=== PATIENT | male | born 2000 | race Caucasian/White ===

== ENCOUNTER 2019-09-03 09:46 | Inpatient (IN) | payer SELFPAY ==
[2019-09-03] VITALS (11 sets, daily range): BP systolic 115–149; BP diastolic 51–84
[~2019-09-03] VITALS: Ht 167.6 cm; Wt 63.8 kg
[2019-09-03] MEDS ORDERED: IV NORMAL SALINE 1000ML BAG 1,000 ML IV ONE ×2 (10:45→12:15)
[2019-09-03 11:17] LABS: BILIRUBIN,URINE NEGATIVE (NEG); CLARITY,URINE CLEAR; COLOR,URINE YELLOW; NITRITE,URINE NEGATIVE (NEG); PH,URINE 5.5; PROTEIN,URINE NEGATIVE (NEG-TRACE); UROBILINOGEN,URINE 0.2 mg/dL (0.2 mg/dL)
[2019-09-03 11:22] LABS: AMPHETAMINE/METHAMPHETAMINE POS (NEG); BARBITURATES NEG (NEG); BENZODIAZEPINES NEG (NEG); CANNABINOIDS POS (NEG); COCAINE NEG (NEG); METHADONE NEG (NEG); OPIATES NEG (NEG); PHENCYCLIDINE NEG (NEG)
[2019-09-03 11:44] LABS: HYALINE CASTS, URINE OCCASIONAL /HPF; SQUAMOUS EPITHELIAL CELL,UR OCC /LPF
[2019-09-03 11:46] LABS: BACTERIA,URINE FEW /HPF (0-FEW); RBC,URINE 0 /HPF (0-2)
[2019-09-03 11:51] LABS: BASO % 0 % (0-3); EOS % 0 % (0-3); HEMATOCRIT 45.7 % (39.0-53.0); HEMOGLOBIN 15.6 g/dL (13.0-17.5); LYMPH # 1.2 x10^3/uL (1.0-4.8); LYMPH % 11 % (24-48); MEAN CORPUSCULAR HEMOGLOBIN 30 pg (25-35); MEAN CORPUSCULAR HGB CONC 34 g/dL (31-37); MEAN CORPUSCULAR VOLUME 89 fL (79-100); MONO # 0.7 x10^3/uL (0.0-1.1); MONO % 6 % (0-9); NEUT # 9.1 x10^3/uL (1.8-7.7); NEUT % 82 % (31-73); PLATELET COUNT 153 x10^3/uL (140-400); RED BLOOD COUNT 5.16 x10^6/uL (4.30-5.70); RED CELL DISTRIBUTION WIDTH 13.1 % (11.5-14.5); WHITE BLOOD COUNT 11.1 x10^3/uL (4.0-11.0)
[2019-09-03 11:57] LABS: CALCIUM 9.2 mg/dL (8.5-10.1); CREATININE 1.3 mg/dL (0.7-1.3); GFR 70.4; POTASSIUM 3.1 mmol/L (3.5-5.1)
[2019-09-03 12:00] LABS: ACETAMIN < 2 mcg/ml (10-30); ETHANOL < 10 mg/dL (0-10); SALIC < 2.8 mg/dL (2.8-20.0)
[2019-09-03 12:05] LABS: ALBUMIN 4.9 g/dL (3.4-5.0); ALBUMIN/GLOBULIN RATIO 1.6 (1.0-1.7); TOTAL BILIRUBIN 0.3 mg/dL (0.2-1.0)
--- NOTE | 2019-09-03 12:28 | EKG ---
[facility] [address] [place] [address] Test Date: 2019-09-03 Test Time: 10:11:35 Pat Name: ZEN SCHMITT Department: Room: Gender: M Chief Scientist: : 2000 Requested By: KYRA NUNO Order Number: [id number] Reading MD: Measurements Intervals [place] Rate: 130 P: -109 [place]: 102 QRS: 77 QRSD: 90 T: 56 QT: 304 QTc: 454 Interpretive Statements SUPRAVENTRICULAR RHYTHM LEFT ATRIAL ABNORMALITY QRS(T) CONTOUR ABNORMALITY CONSIDER ANTEROLATERAL MYOCARDIAL DAMAGE ABNORMAL ECG RI6.01 No previous ECG available for comparison
--- NOTE | 2019-09-03 12:58 | PHYS DOC ---
Past Medical History Past Medical History: No Pertinent History Past Surgical History: No Surgical History Smoking Status: Current Every Day Smoker Alcohol Use: Occasionally Adult General Chief Complaint Chief Complaint: DRUG ABUSE HPI HPI Patient is a 18 year old accompanied by his significant other and his mother prieto ott presents to the emergency department with complaints of an altered mental status. Girlfriend states that she last saw the patient normal at 2:30 this morning. She states at 0730 this morning patient woke her up and was not behaving normally. He was talking about things that were not there and seemed to be having hallucinations. Per the girlfriend patient has a history of past methamphetamine abuse. Patient is alert and oriented to person, year, day, and place however his mumbling incoherent words between questions and complains that his feet smell. 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 Limited history of present illness due to patient's current ment al status and flight of ideas. Review of Systems Review of Systems All other ROS is negative unless otherwise noted in HPI. Current Medications Current Medications Current Medications Medications (Trade) Dose Ordered Sig/Ese Start Time Stop Time Status Last Admin Dose Admin Lorazepam (Ativan Inj) 1 mg 1X ONCE 09/03/19 12:15 09/03/19 12:16 DC 09/03/19 12:10 1 MG Sodium Chloride 1,000 ml @ 1,000 mls/hr 1X ONCE 09/03/19 12:15 09/03/19 13:14 DC 09/03/19 12:11 1,000 MLS/HR Allergies Allergies Allergies Coded Allergies Type Severity Reaction Last Updated Verified No Known Drug Allergies 09/03/19 No Physical Exam Physical Exam See Above Constitutional: Well developed, well nourished, appears intoxicated HENT: Normocephalic, atraumatic, bilateral external ears normal, oropharynx dry, no oral exudates, nose normal. [] Eyes: PERRLA, conjunctiva injected bilaterally, no discharge; pupils dilated and sluggish [] Neck: supple, no stridor. [] Cardiovascular:Heart rate regular tachycardic rhythm, no murmur [] Lungs & Thorax: Bilateral breath sounds clear to auscultation, respirations rapid and shallow, no retractions, no wheezing [] Abdomen: soft, no tenderness Skin: Warm, dry, no erythema, no rash. [] Extremities: No cyanosis, no clubbing, ROM intact, no edema. [] Neurologic: Alert and oriented X 3, strength 5/5 x4 extremities Psychologic: Affect paranoid, judgement impaired, mood volatile Current Patient Data Vital Signs Vital Signs Date Time Temp Pulse Resp B/P (MAP) Pulse Ox O2 Delivery O2 Flow Rate FiO2 09/03/19 12:36 134 18 149/101 (117) 95 Room Air 09/03/19 09:57 98.1 98.1 Lab Values Laboratory Tests Test 09/03/19 09:58 09/03/19 11:30 Urine Collection Type Unknown Urine Color Yellow Urine Clarity Clear Urine pH 5.5 Urine Specific [place] 1.015 Urine Protein Negative mg/dL (NEG-TRACE) Urine Glucose (UA) Negative mg/dL (NEG) Urine Ketones (Stick) Negative mg/dL (NEG) Urine Blood Negative (NEG) Urine Nitrite Negative (NEG) Urine Bilirubin Negative (NEG) Urine Urobilinogen Dipstick 0.2 mg/dL (0.2 mg/dL) Urine Leukocyte Esterase Negative (NEG) Urine RBC 0 /HPF (0-2) Urine WBC 1-4 /HPF (0-4) Urine Squamous Epithelial Cells Occ /LPF Urine Bacteria Few /HPF (0-FEW) Urine Hyaline Casts Occasional /HPF Urine Mucus Slight /LPF Urine Opiates Screen Neg (NEG) Urine Methadone Screen Neg (NEG) Urine Barbiturates Neg (NEG) Urine Phencyclidine Screen Neg (NEG) Urine Amphetamine/Methamphetamine Pos (NEG) Urine Benzodiazepines Screen Neg (NEG) Urine Cocaine Screen Neg (NEG) Urine Cannabinoids Screen Pos (NEG) Urine Ethyl Alcohol Neg (NEG) White Blood Count 11.1 x10^3/uL (4.0-11.0) H Red Blood Count 5.16 x10^6/uL (4.30-5.70) Hemoglobin 15.6 g/dL (13.0-17.5) Hematocrit 45.7 % (39.0-53.0) Mean Corpuscular Volume 89 fL (79-100) Mean Corpuscular Hemoglobin 30 pg (25-35) Mean Corpuscular Hemoglobin Concent 34 g/dL (31-37) Red Cell Distribution Width 13.1 % (11.5-14.5) Platelet Count 153 x10^3/uL (140-400) Neutrophils (%) (Auto) 82 % (31-73) H Lymphocytes (%) (Auto) 11 % (24-48) L Monocytes (%) (Auto) 6 % (0-9) Eosinophils (%) (Auto) 0 % (0-3) Basophils (%) (Auto) 0 % (0-3) Neutrophils # (Auto) 9.1 x10^3/uL (1.8-7.7) H Lymphocytes # (Auto) 1.2 x10^3/uL (1.0-4.8) Monocytes # (Auto) 0.7 x10^3/uL (0.0-1.1) Eosinophils # (Auto) 0.0 x10^3/uL (0.0-0.7) Basophils # (Auto) 0.0 x10^3/uL (0.0-0.2) Sodium Level 141 mmol/L (136-145) Potassium Level 3.1 mmol/L (3.5-5.1) L Chloride Level 101 mmol/L (98-107) Carbon Dioxide Level 23 mmol/L (21-32) Anion Gap 17 (6-14) H Blood Urea Nitrogen 7 mg/dL (8-26) L Creatinine 1.3 mg/dL (0.7-1.3) Estimated GFR (Cockcroft-Gault) 70.4 BUN/Creatinine Ratio 5 (6-20) L Glucose Level 129 mg/dL (70-99) H Calcium Level 9.2 mg/dL (8.5-10.1) Total Bilirubin 0.3 mg/dL (0.2-1.0) Aspartate Amino Transferase (AST) 22 U/L (15-37) Alanine Aminotransferase (ALT) 40 U/L (16-63) Alkaline Phosphatase 109 U/L (46-116) Creatine Kinase 245 U/L (39-308) Creatine Kinase MB (Mass) 1.5 ng/mL (0.0-3.6) Creatine Kinase MB Relative Index 0.6 % (0-4) Troponin I Quantitative < 0.017 ng/mL (0.000-0.055) Total Protein 8.0 g/dL (6.4-8.2) Albumin 4.9 g/dL (3.4-5.0) Albumin/Globulin Ratio 1.6 (1.0-1.7) Salicylates Level < 2.8 mg/dL (2.8-20.0) L Salicylate Last Dose Date Unknown Salicylate Last Dose Time Unknown Acetaminophen Level < 2 mcg/ml (10-30) L Acetaminophen Last Dose Date Unknown Acetaminophen Last Dose Time Unknown Ethyl Alcohol Level < 10 mg/dL (0-10) Laboratory Tests 09/03/19 11:30 Laboratory Tests 09/03/19 11:30 EKG EKG 1011 sinus tach, no STEMI, rate [address] Hardy[] Radiology/Procedures Radiology/Procedures [] Course & Med Decision Making Course & Med Decision Making Pertinent Labs and Imaging studies reviewed. (See chart for details) 1249- Spoke with Dr. Ntetles and will admit patient for drug abuse, hallucinations, overdose to the ICU Poison control was contacted by Dorinda LEES, per poison control their recommendation includes IV fluids, benzodiazipines, and close monitoring will notify Dr. Nettles. [] Dragon Disclaimer Dragon Disclaimer This electronic medical record was generated, in whole or in part, using a voice recognition dictation system. Departure Departure Impression: Primary Impression: Amphetamine overdose of undetermined intent Additional Impressions: Hallucinations Drug abuse Disposition: ADMITTED INPATIENT Admitting Physician: KARIN (RICK) Condition: STABLE Referrals: NO PCP (PCP) Problem Qualifiers Primary Impression: Amphetamine overdose of undetermined intent Encounter type: initial encounter Qualified Codes: T43.624A - Poisoning by amphetamines, undetermined, initial encounter KYRA NUNO APRN Sep 03, 2019 12:58
[2019-09-03] MEDS ORDERED: ACETAMINOPHEN 325 MG TABLET. PO PRN (13:15)
[2019-09-03] MEDS ORDERED: MAG HYDROX/ALUMINUM HYD/SIMETH 30 ML ORAL.SUSP PO PRN (13:15)
[2019-09-03] MEDS ORDERED: ONDANSETRON PF 4 MG/2 ML VIAL. IV PRN (13:15)
[2019-09-03] MEDS ORDERED: POTASSIUM CHLORIDE 20 MEQ TABLET.ER. PO ONE (13:15)
[2019-09-03] MEDS ORDERED: 0.9 % SODIUM CHLORIDE 10 ML DISP.SYRIN. IV PRN (13:15)
[2019-09-03] MEDS ORDERED: MAGNESIUM HYDROXIDE 2,400 MG/30 ML ORAL.SUSP. PO PRN (13:15)
--- NOTE | 2019-09-03 13:39 | PDOC1 ---
History and Physical Date of Admission Date of Admission DATE: 09/03/19 TIME: 13:16 Identification/Chief Complaint Chief Complaint drug overdose Problems: (1) Drug abuse (2) Hallucinations (3) Amphetamine overdose of undetermined intent Source Source: Caregiver, Chart review, Patient History of Present Illness History of Present Illness 18 year old male with no significant pmx who presents to the ER with hallucinations and altered mental status. patient was last seen normal at 2:30 AM last night. apparently he took his sisters vyvanse, unclear amount. nio suicidal attempt per patient and family. hx of meth use per family. patient's mom and gf brought patient to ED given hallucinations and agitation. in the ED patient labs stable. patient tachycardic with HR in 120s. UDS positive for cannabinoids and amphetamines. history difficult to obtain as patient climbing out of bed and not speaking coherently. 4 mg of ativan total given by ED. I have instructed the ER to contact poison control to provide further recommendations regarding vyvanse OD. recommendations: IVF, benzos, and close monitoring Past Medical History Cardiovascular: No pertinent hx Past Surgical History Past Surgical History: No pertinent history Family History Family History reviewed and denies Social History Smoke: <1 pack per day ALCOHOL: occassional Drugs: Marijuana, Other (hx of meth) Current Problem List Problem List Problems Medical Problems: (1) Amphetamine overdose of undetermined intent Status: Acute (2) Drug abuse Status: Acute (3) Hallucinations Status: Acute Current Medications Current Medications Current Medications Sodium Chloride 1,000 ml @ 1,000 mls/hr 1X ONCE IV Last administered on 09/03/19at 11:29; Start 09/03/19 at 10:45; Stop 09/03/19 at 11:44; Status DC Lorazepam (Ativan Inj) 1 mg 1X ONCE IV Last administered on 09/03/19at 11:29; Start 09/03/19 at 10:45; Stop 09/03/19 at 11:22; Status DC Lorazepam (Ativan Inj) 1 mg 1X ONCE IV Last administered on 09/03/19at 12:10; Start 09/03/19 at 12:15; Stop 09/03/19 at 12:16; Status DC Sodium Chloride 1,000 ml @ 1,000 mls/hr 1X ONCE IV Last administered on 09/03/19at 12:11; Start 09/03/19 at 12:15; Stop 09/03/19 at 13:14 Lorazepam (Ativan Inj) 2 mg 1X ONCE IVP ; Start 09/03/19 at 13:00; Stop 09/03/19 at 13:01; Status DC Allergies Allergies: Coded Allergies: No Known Drug Allergies (Unverified , 09/03/19) ROS Review of System difficult to obtain given altered mental status Physical Exam Physical Exam GENERAL: agitated climbing out of bed HEENT: Head normocephalic, atraumatic. NECK: Supple LUNGS: Clear to auscultation. HEART: tachy ABDOMEN: Soft, positive bowel sounds. EXTREMITIES: No cyanosis or edema. NEUROLOGIC: unable to assess PSYCHIATRIC: flight of ideas, aggitated, no SI. SKIN: No ulceration. Vitals Vitals Vital Signs Date Time Temp Pulse Resp B/P (MAP) Pulse Ox O2 Delivery O2 Flow Rate FiO2 09/03/19 11:52 124 18 152/77 (102) 95 Room Air 09/03/19 09:57 98.1 98.1 Labs Labs Laboratory Tests Test 09/03/19 09:58 09/03/19 11:30 Urine Collection Type Unknown Urine Color Yellow Urine Clarity Clear Urine pH 5.5 Urine Specific [place] 1.015 Urine Protein Negative mg/dL (NEG-TRACE) Urine Glucose (UA) Negative mg/dL (NEG) Urine Ketones (Stick) Negative mg/dL (NEG) Urine Blood Negative (NEG) Urine Nitrite Negative (NEG) Urine Bilirubin Negative (NEG) Urine Urobilinogen Dipstick 0.2 mg/dL (0.2 mg/dL) Urine Leukocyte Esterase Negative (NEG) Urine RBC 0 /HPF (0-2) Urine WBC 1-4 /HPF (0-4) Urine Squamous Epithelial Cells Occ /LPF Urine Bacteria Few /HPF (0-FEW) Urine Hyaline Casts Occasional /HPF Urine Mucus Slight /LPF Urine Opiates Screen Neg (NEG) Urine Methadone Screen Neg (NEG) Urine Barbiturates Neg (NEG) Urine Phencyclidine Screen Neg (NEG) Urine Amphetamine/Methamphetamine Pos (NEG) Urine Benzodiazepines Screen Neg (NEG) Urine Cocaine Screen Neg (NEG) Urine Cannabinoids Screen Pos (NEG) Urine Ethyl Alcohol Neg (NEG) White Blood Count 11.1 x10^3/uL (4.0-11.0) Red Blood Count 5.16 x10^6/uL (4.30-5.70) Hemoglobin 15.6 g/dL (13.0-17.5) Hematocrit 45.7 % (39.0-53.0) Mean Corpuscular Volume 89 fL (79-100) Mean Corpuscular Hemoglobin 30 pg (25-35) Mean Corpuscular Hemoglobin Concent 34 g/dL (31-37) Red Cell Distribution Width 13.1 % (11.5-14.5) Platelet Count 153 x10^3/uL (140-400) Neutrophils (%) (Auto) 82 % (31-73) Lymphocytes (%) (Auto) 11 % (24-48) Monocytes (%) (Auto) 6 % (0-9) Eosinophils (%) (Auto) 0 % (0-3) Basophils (%) (Auto) 0 % (0-3) Neutrophils # (Auto) 9.1 x10^3/uL (1.8-7.7) Lymphocytes # (Auto) 1.2 x10^3/uL (1.0-4.8) Monocytes # (Auto) 0.7 x10^3/uL (0.0-1.1) Eosinophils # (Auto) 0.0 x10^3/uL (0.0-0.7) Basophils # (Auto) 0.0 x10^3/uL (0.0-0.2) Sodium Level 141 mmol/L (136-145) Potassium Level 3.1 mmol/L (3.5-5.1) Chloride Level 101 mmol/L (98-107) Carbon Dioxide Level 23 mmol/L (21-32) Anion Gap 17 (6-14) Blood Urea Nitrogen 7 mg/dL (8-26) Creatinine 1.3 mg/dL (0.7-1.3) Estimated GFR (Cockcroft-Gault) 70.4 BUN/Creatinine Ratio 5 (6-20) Glucose Level 129 mg/dL (70-99) Calcium Level 9.2 mg/dL (8.5-10.1) Total Bilirubin 0.3 mg/dL (0.2-1.0) Aspartate Amino Transf (AST/SGOT) 22 U/L (15-37) Alanine Aminotransferase (ALT/SGPT) 40 U/L (16-63) Alkaline Phosphatase 109 U/L (46-116) Creatine Kinase 245 U/L (39-308) Creatine Kinase MB (Mass) 1.5 ng/mL (0.0-3.6) Creatine Kinase MB Relative Index 0.6 % (0-4) Troponin I Quantitative < 0.017 ng/mL (0.000-0.055) Total Protein 8.0 g/dL (6.4-8.2) Albumin 4.9 g/dL (3.4-5.0) Albumin/Globulin Ratio 1.6 (1.0-1.7) Salicylates Level < 2.8 mg/dL (2.8-20.0) Salicylate Last Dose Date Unknown Salicylate Last Dose Time Unknown Acetaminophen Level < 2 mcg/ml (10-30) Acetaminophen Last Dose Date Unknown Acetaminophen Last Dose Time Unknown Ethyl Alcohol Level < 10 mg/dL (0-10) Laboratory Tests Test 09/03/19 09:58 09/03/19 11:30 Urine Collection Type Unknown Urine Color Yellow Urine Clarity Clear Urine pH 5.5 Urine Specific [place] 1.015 Urine Protein Negative mg/dL (NEG-TRACE) Urine Glucose (UA) Negative mg/dL (NEG) Urine Ketones (Stick) Negative mg/dL (NEG) Urine Blood Negative (NEG) Urine Nitrite Negative (NEG) Urine Bilirubin Negative (NEG) Urine Urobilinogen Dipstick 0.2 mg/dL (0.2 mg/dL) Urine Leukocyte Esterase Negative (NEG) Urine RBC 0 /HPF (0-2) Urine WBC 1-4 /HPF (0-4) Urine Squamous Epithelial Cells Occ /LPF Urine Bacteria Few /HPF (0-FEW) Urine Hyaline Casts Occasional /HPF Urine Mucus Slight /LPF Urine Opiates Screen Neg (NEG) Urine Methadone Screen Neg (NEG) Urine Barbiturates Neg (NEG) Urine Phencyclidine Screen Neg (NEG) Urine Amphetamine/Methamphetamine Pos (NEG) Urine Benzodiazepines Screen Neg (NEG) Urine Cocaine Screen Neg (NEG) Urine Cannabinoids Screen Pos (NEG) Urine Ethyl Alcohol Neg (NEG) White Blood Count 11.1 x10^3/uL (4.0-11.0) Red Blood Count 5.16 x10^6/uL (4.30-5.70) Hemoglobin 15.6 g/dL (13.0-17.5) Hematocrit 45.7 % (39.0-53.0) Mean Corpuscular Volume 89 fL (79-100) Mean Corpuscular Hemoglobin 30 pg (25-35) Mean Corpuscular Hemoglobin Concent 34 g/dL (31-37) Red Cell Distribution Width 13.1 % (11.5-14.5) Platelet Count 153 x10^3/uL (140-400) Neutrophils (%) (Auto) 82 % (31-73) Lymphocytes (%) (Auto) 11 % (24-48) Monocytes (%) (Auto) 6 % (0-9) Eosinophils (%) (Auto) 0 % (0-3) Basophils (%) (Auto) 0 % (0-3) Neutrophils # (Auto) 9.1 x10^3/uL (1.8-7.7) Lymphocytes # (Auto) 1.2 x10^3/uL (1.0-4.8) Monocytes # (Auto) 0.7 x10^3/uL (0.0-1.1) Eosinophils # (Auto) 0.0 x10^3/uL (0.0-0.7) Basophils # (Auto) 0.0 x10^3/uL (0.0-0.2) Sodium Level 141 mmol/L (136-145) Potassium Level 3.1 mmol/L (3.5-5.1) Chloride Level 101 mmol/L (98-107) Carbon Dioxide Level 23 mmol/L (21-32) Anion Gap 17 (6-14) Blood Urea Nitrogen 7 mg/dL (8-26) Creatinine 1.3 mg/dL (0.7-1.3) Estimated GFR (Cockcroft-Gault) 70.4 BUN/Creatinine Ratio 5 (6-20) Glucose Level 129 mg/dL (70-99) Calcium Level 9.2 mg/dL (8.5-10.1) Total Bilirubin 0.3 mg/dL (0.2-1.0) Aspartate Amino Transf (AST/SGOT) 22 U/L (15-37) Alanine Aminotransferase (ALT/SGPT) 40 U/L (16-63) Alkaline Phosphatase 109 U/L (46-116) Creatine Kinase 245 U/L (39-308) Creatine Kinase MB (Mass) 1.5 ng/mL (0.0-3.6) Creatine Kinase MB Relative Index 0.6 % (0-4) Troponin I Quantitative < 0.017 ng/mL (0.000-0.055) Total Protein 8.0 g/dL (6.4-8.2) Albumin 4.9 g/dL (3.4-5.0) Albumin/Globulin Ratio 1.6 (1.0-1.7) Salicylates Level < 2.8 mg/dL (2.8-20.0) Salicylate Last Dose Date Unknown Salicylate Last Dose Time Unknown Acetaminophen Level < 2 mcg/ml (10-30) Acetaminophen Last Dose Date Unknown Acetaminophen Last Dose Time Unknown Ethyl Alcohol Level < 10 mg/dL (0-10) VTE Prophylaxis Ordered VTE Prophylaxis Devices: Yes VTE Pharmacological Prophylaxi: Yes Assessment/Plan Assessment/Plan ASSESSMENT Acute Toxic Metabolic Encephalopathy Amphetamine Overdose, non-suicidal Tachycardia Visual Hallucinations Cannabinoid Use Disorder EtOH abuse hx of Meth Use PLAN admit to ICU given severe agitation, acute drug intoxication of unknown quantity ativan 2 mg IV q2 hrs prn for agitation IVF, NS at 100 cc/hr close 1:1 observation poison control contacted: IVF, benzos, and close monitoring dvt ppx full code greater than2 [place] LOS due to severe encephalopathy, drug overdose Problem Qualifiers (1) Amphetamine overdose of undetermined intent: Encounter type: initial encounter Qualified Codes: T43.624A - Poisoning by amphetamines, undetermined, initial encounter HANSEL CABRERA MD Sep 03, 2019 13:38
[2019-09-03] MEDS: HEPARIN for SUB-Q USE 5,000 UNIT/ML VIAL. SQ SCH ×2 (14:00→22:00)
[2019-09-03] MEDS ORDERED: ZIPRASIDONE IM 20 MG VIAL. IM ONE ×2 (14:15→14:30)
[2019-09-03] MEDS: IV NORMAL SALINE 1000ML BAG 1,000 ML IV SCH (15:10)
--- NOTE | 2019-09-03 16:00 | NUR ---
GOEDON 10 MG IM X2 GIVEN. PT CONTINUES TO BE AGITATED AND RESTLESS. ATIVAN 2 MG GIVEN IV. IVF STARTED. PT APPEARED MORE CALM AND COMFORTABLE 10-15 AFTER ATIVAN. RAILS PADDED FOR SEIZURE PRECAUTIONS
[2019-09-03] MEDS ORDERED: ZIPRASIDONE IM 20 MG VIAL. IM PRN (19:00)
[2019-09-03] MEDS ORDERED: HALOPERIDOL LACTATE 5 MG/ML VIAL. IVP PRN (19:45)
[2019-09-03] MEDS ORDERED: cloNIDine HCL 0.1 MG TABLET PO PRN (19:45)
[2019-09-03] MEDS ORDERED: LORazepam 1 MG TABLET PO PRN ×2 (19:45)
[2019-09-03] MEDS ORDERED: diphenhydrAMINE 50 MG/ML VIAL IVP PRN (19:45)
[2019-09-03] MEDS ORDERED: chlordiazePOXIDE HCL 25 MG CAPSULE PO PRN ×2 (19:45)
[2019-09-03] MEDS: SENNOSIDES/DOCUSATE 8.6/50MG TABLET. PO SCH (21:00)
--- NOTE | 2019-09-03 22:09 | NUR ---
20 MG if Geodon and 8 MG of Ativan given. Patient continues to restless and agitated during any interventions.
[2019-09-04] VITALS (11 sets, daily range): BP systolic 90–143; BP diastolic 48–82
[2019-09-04] MEDS: IV NORMAL SALINE 1000ML BAG 1,000 ML IV SCH ×2 (00:59→08:06)
[2019-09-04] MEDS: HEPARIN for SUB-Q USE 5,000 UNIT/ML VIAL. SQ SCH (06:00)
[2019-09-04] MEDS: SENNOSIDES/DOCUSATE 8.6/50MG TABLET. PO SCH (08:06)
[2019-09-04] MEDS ORDERED: MULTIVIT INFUSN,ADULT 4,VIT K 10 ML, THIAMINE INJ 100 MG, FOLIC ACID INJ 1 MG in IV NOR... IV SCH (09:00)
[2019-09-04] MEDS ORDERED: ELECTROLYTE (ICU) PROTOCOL. MC SCH (09:00)
--- NOTE | 2019-09-04 12:01 | PDOC3 ---
Discharge Summary Visit Information Date of Admission: Sep 03, 2019 Date of Discharge: Sep 04, 2019 Admitting Diagnosis Comment: Amphetamine use of unknown intent Final Diagnosis Problems Medical Problems: (1) Amphetamine overdose of undetermined intent Status: Acute (2) Drug abuse Status: Acute (3) Hallucinations Status: Acute Brief Hospital Course Allergies Allergies Coded Allergies Type Severity Reaction Last Updated Verified No Known Drug Allergies 09/03/19 No Vital Signs Vital Signs Date Time Temp Pulse Resp B/P (MAP) Pulse Ox O2 Delivery O2 Flow Rate FiO2 09/04/19 11:00 93 12 141/82 (101) 100 Room Air 09/04/19 08:00 97.8 97.8 Lab Results Laboratory Tests Test 09/03/19 09:58 09/03/19 11:30 Urine Collection Type Unknown Urine Color Yellow Urine Clarity Clear Urine pH 5.5 Urine Specific [place] 1.015 Urine Protein Negative mg/dL (NEG-TRACE) Urine Glucose (UA) Negative mg/dL (NEG) Urine Ketones (Stick) Negative mg/dL (NEG) Urine Blood Negative (NEG) Urine Nitrite Negative (NEG) Urine Bilirubin Negative (NEG) Urine Urobilinogen Dipstick 0.2 mg/dL (0.2 mg/dL) Urine Leukocyte Esterase Negative (NEG) Urine RBC 0 /HPF (0-2) Urine WBC 1-4 /HPF (0-4) Urine Squamous Epithelial Cells Occ /LPF Urine Bacteria Few /HPF (0-FEW) Urine Hyaline Casts Occasional /HPF Urine Mucus Slight /LPF Urine Opiates Screen Neg (NEG) Urine Methadone Screen Neg (NEG) Urine Barbiturates Neg (NEG) Urine Phencyclidine Screen Neg (NEG) Urine Amphetamine/Methamphetamine Pos (NEG) Urine Benzodiazepines Screen Neg (NEG) Urine Cocaine Screen Neg (NEG) Urine Cannabinoids Screen Pos (NEG) Urine Ethyl Alcohol Neg (NEG) White Blood Count 11.1 x10^3/uL (4.0-11.0) Red Blood Count 5.16 x10^6/uL (4.30-5.70) Hemoglobin 15.6 g/dL (13.0-17.5) Hematocrit 45.7 % (39.0-53.0) Mean Corpuscular Volume 89 fL (79-100) Mean Corpuscular Hemoglobin 30 pg (25-35) Mean Corpuscular Hemoglobin Concent 34 g/dL (31-37) Red Cell Distribution Width 13.1 % (11.5-14.5) Platelet Count 153 x10^3/uL (140-400) Neutrophils (%) (Auto) 82 % (31-73) Lymphocytes (%) (Auto) 11 % (24-48) Monocytes (%) (Auto) 6 % (0-9) Eosinophils (%) (Auto) 0 % (0-3) Basophils (%) (Auto) 0 % (0-3) Neutrophils # (Auto) 9.1 x10^3/uL (1.8-7.7) Lymphocytes # (Auto) 1.2 x10^3/uL (1.0-4.8) Monocytes # (Auto) 0.7 x10^3/uL (0.0-1.1) Eosinophils # (Auto) 0.0 x10^3/uL (0.0-0.7) Basophils # (Auto) 0.0 x10^3/uL (0.0-0.2) Sodium Level 141 mmol/L (136-145) Potassium Level 3.1 mmol/L (3.5-5.1) Chloride Level 101 mmol/L (98-107) Carbon Dioxide Level 23 mmol/L (21-32) Anion Gap 17 (6-14) Blood Urea Nitrogen 7 mg/dL (8-26) Creatinine 1.3 mg/dL (0.7-1.3) Estimated GFR (Cockcroft-Gault) 70.4 BUN/Creatinine Ratio 5 (6-20) Glucose Level 129 mg/dL (70-99) Calcium Level 9.2 mg/dL (8.5-10.1) Total Bilirubin 0.3 mg/dL (0.2-1.0) Aspartate Amino Transf (AST/SGOT) 22 U/L (15-37) Alanine Aminotransferase (ALT/SGPT) 40 U/L (16-63) Alkaline Phosphatase 109 U/L (46-116) Creatine Kinase 245 U/L (39-308) Creatine Kinase MB (Mass) 1.5 ng/mL (0.0-3.6) Creatine Kinase MB Relative Index 0.6 % (0-4) Troponin I Quantitative < 0.017 ng/mL (0.000-0.055) Total Protein 8.0 g/dL (6.4-8.2) Albumin 4.9 g/dL (3.4-5.0) Albumin/Globulin Ratio 1.6 (1.0-1.7) Salicylates Level < 2.8 mg/dL (2.8-20.0) Salicylate Last Dose Date Unknown Salicylate Last Dose Time Unknown Acetaminophen Level < 2 mcg/ml (10-30) Acetaminophen Last Dose Date Unknown Acetaminophen Last Dose Time Unknown Ethyl Alcohol Level < 10 mg/dL (0-10) Brief Hospital Course Mr. Freedman is a 18 old male who presented with a superposed amphetamine overdose. The patient took one vitamins with several Benadryl. She was evaluated by psychiatry who recommended discharge home with a safety plan. The patient is not suicidal in their opinion, he does have a great deal of anxiety and he will be seeing outpatient psych aide if it can be coordinated by our PAT team. Patient is hemodynamically stable and in no acute distress. Signs and symptoms of alarm and when to seek medical attention was given to the patient prior to dismissal no acute events reported overnight during his hospital stay Discharge Information Condition at Discharge: Improved Follow Up: Weeks Disposition/Orders: D/C to Home No Active Prescriptions or Reported Meds ROSANA BRUNO MD Sep 04, 2019 12:01
--- NOTE | 2019-09-04 12:56 | NUR ---
Discharge Note: [facility] [place] ICU Discharge instructions and discharge home medications reviewed with Patient and a copy given. All questions have been answered and understanding verbalized. The following instructions and handouts were given: Patient instructed to remain on bedrest for the rest of day. Family instructed to help patient with ADL's and ambulation due to the amount of ativan patient has been given. Patient instructed to not operate any heavy machinery, or vehicles for the rest of the day as well as not to do any heavy lifting. Patient agreeable, family witness and agreeable. Patient educated on followup with mental health services reccommended by PAT team. Discontinued lines and drains: RAC IV removed with no complications. See documentation in chart. Patient discharged to home with significant other, via private vehicle with his aunt.
[2019-09-08] MEDS ORDERED: THIAMINE INJ 100 MG in IV DEXTROSE 5% 50 ML IV SCH (09:00)
[2019-09-09] MEDS ORDERED: THIAMINE 100 MG TABLET. PO SCH (09:00)
[2019-09-09] MEDS ORDERED: THIAMINE IM 200 MG/2 ML VIAL. IM SCH (09:00)
[2019-09-09] MEDS ORDERED: FOLIC ACID 1 MG TABLET. PO SCH (09:00)
[2019-09-09] MEDS ORDERED: MULTIVITAMIN with MINERAL TABLET. PO SCH (09:00)
== END 2019-09-04 11:55 | disposition home or self-care (01) | DRG 917 ==
LOC: ER 09:46 → 1 WEST ICU 12:49
PROVIDERS: ADMIT Internal Medicine; ATTEND Internal Medicine
DX: T43.621A Poisoning by amphetamines, accidental (unintentional), initial encounter (principal); G92 Toxic encephalopathy; F17.210 Nicotine dependence, cigarettes, uncomplicated; F12.10 Cannabis abuse, uncomplicated; F10.10 Alcohol abuse, uncomplicated; Y92.89 Other specified places as the place of occurrence of the external cause
CPT/HCPCS: 36415; 80053; 80307; 80329; 81001; 82553; 84484; 85025; 93005; G0480; J1630; J2060; J3486; J7030; G0378